=== PATIENT | female | born 1970 | race Asian ===

== ENCOUNTER 2019-02-05 12:25 | Emergency (ER) | payer MEDICAID ==
--- NOTE | 2019-02-27 13:58 | ED Physician Chart ---
ED Chief Complaint/HPI - Patient Information Date Seen:: 02/05/19 Time Seen:: 12:45 Chief Complaint:: cough History of Present Illness:: several days being treated option for radiographic eval pt refused treatment no hx dvt pe no blodd Allergies:: Allergies Allergy/AdvReac Type Severity Reaction Status Date / Time Penicillins Allergy Verified 02/05/19 12:38 ED Review of Systems - Review of Systems General/Constitutional: No fever Skin: No skin lesions Head: No headache Eyes: No loss of vision ENT: No earache Neck: No swelling Cardio Vascular: No chest pain Pulmonary: Cough GI: No nausea, No vomiting G/U: No dysuria Musculoskeletal: No bone or joint pain Hematopoietic: No bruising Neurological: No syncope ED Past Medical History - Past Medical History Past Medical History: Other (bronchitis) Surgical History: Appendectomy (1 month cough) Family Medical History - Family Member Mother History Unknown: Yes ED Physical Exam - Physical Examination General/Constitutional: Alert, No distress, Non-toxic appearing Head: Atraumatic Eyes: Lids, conjuctiva normal Skin: No rash ENMT: External ears, nose nl Neck: Nontender Respiratory: Nl effort/Exclusion, No Wheeze/Rhonchi/Rales Cardio Vascular: RRR GI: No tenderness/rebounding/guarding Extremities: No tenderness or effusion Neuro/Psych: Alert/oriented Misc: Normal back ED Labs/Radiology/EKG Results - Lab Results Results: told needs to get tb check ED Assessment - Assessment General Assessment: stable ED Septic Shock - . 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
== END 2019-02-05 13:15 | disposition home or self-care (01) ==
LOC: ER 12:25 → EDBD 12:25 → ER 13:15
DX: R05 Cough (principal); Z90.49 Acquired absence of other specified parts of digestive tract; Z88.0 Allergy status to penicillin
CPT/HCPCS: 93005; Z7502